=== PATIENT | female | born 1985 | race African-American/Black ===

== ENCOUNTER 2020-08-01 16:22 | Emergency (ER) | payer MEDICAID ==
[~2020-08-01] VITALS: Ht 165.1 cm; Wt 73.0 kg
[2020-08-01] MEDS ORDERED: ONDANSETRON HCL 4MG/2ML INJ IV ONE ×2 (16:45→19:00)
[2020-08-01] MEDS ORDERED: LIDOCAINE HCL/PF 1% 10 MG/ML 5ML VIAL IJ ONE (16:45)
[2020-08-01] MEDS ORDERED: MORPHINE SULFATE 4 MG/ML CPJ (NOT FOR IM USE) IV ONE ×2 (16:45→19:15)
[2020-08-01] MEDS ORDERED: KETAMINE HCL 50 MG/ML 10ML IV ONE (19:00)
[2020-08-01] MEDS ORDERED: HYDR-4001 MT (20:55)
[2020-08-01 21:49] VITALS: BP 146/90
== END 2020-08-01 22:37 | disposition home or self-care (01) ==
LOC: ER 16:22
DX: S52.501A Unspecified fracture of the lower end of right radius, initial encounter for closed fracture (principal); S52.601A Unspecified fracture of lower end of right ulna, initial encounter for closed fracture; X58.XXXA Exposure to other specified factors, initial encounter; Y93.89 Activity, other specified; Y92.89 Other specified places as the place of occurrence of the external cause; Y99.8 Other external cause status; Z98.890 Other specified postprocedural states
CPT/HCPCS: 25605; 73110; 93005; 96374; 96375; 96376; 99152; 99285; J2270; J2405; J3490